=== PATIENT | female | born 2000 | race American Indian/Alaskan Native ===

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

== ENCOUNTER 2021-09-23 09:39 | Emergency (ER) | payer MEDICAID ==
--- NOTE | 2021-09-23 12:41 | Emergency Department Report ---
- General Chief Complaint: Upper Respiratory Infection Stated Complaint: ASIYA/SORE THROAT/PINK EYE Time Seen by Provider: 09/23/21 11:56 Source: patient Mode of arrival: Ambulatory Limitations: No Limitations - History of Present Illness Initial Comments: 21-year-old black female with no past medical history presents to the emergency department for evaluation of few day history of persistent cough, sore throat, headache, redness to right eye, and now pain when she coughs. She denies fever, shortness of breath, nausea, vomiting, abdominal pain, dizziness, and diaphoresis. She states that she has been taking Mucinex and Tylenol at home without improvement. MD Complaint: cough, sore throat, rhinorrhea, nasal congestion -: Gradual, days(s) (2-3) Severity: moderate Severity scale (0 -10): 4 Quality: aching Consistency: constant Associated Symptoms: headache, rhinorrhea, cough, chest pain. denies: fever, chills, myalgias, diaphoresis, stiff neck, shortness of breath, abdominal pain, nausea, vomiting, rash, confusion, weight loss, epistaxis, hoarseness, ear pain Treatments Prior to Arrival: Acetaminophen, other - Related Data Previous Rx's Medication Instructions Recorded Last Taken Type Brompheniramine/Pseudoephed/Dm 10 ml PO TID PRN #120 ml 09/23/21 Unknown Rx [Bromfed Dm Cough Syrup] Olopatadine HCl [Pataday 0.2%] 1 drop OD QDAY 7 Days #1 bottle 09/23/21 Unknown Rx methylPREDNISolone [Medrol 4MG 4 mg PO DAILY #1 pack 09/23/21 Unknown Rx DOSEPAK (21 tabs)] Allergies Allergy/AdvReac Type Severity Reaction Status Date / Time No Known Allergies Allergy Verified 09/23/21 10:06 ED Review of Systems ROS: Stated complaint: ASIYA/SORE THROAT/PINK EYE Other details as noted in HPI Comment: All other systems reviewed and negative Constitutional: denies: chills, fever Eyes: eye discharge (Clear from right). denies: eye pain ENT: throat pain, congestion. denies: ear pain, dental pain, hearing loss Respiratory: cough. denies: shortness of breath, SOB with exertion, SOB at rest, wheezing Cardiovascular: chest pain (Only when she coughs). denies: palpitations, dyspnea on exertion Gastrointestinal: denies: abdominal pain, nausea, vomiting, diarrhea, hematemesis, melena, hematochezia Genitourinary: denies: urgency, dysuria, frequency, hematuria, discharge Musculoskeletal: denies: back pain Skin: denies: rash, lesions Neurological: headache. denies: weakness, numbness, paresthesias ED Past Medical Hx - Past Medical History Previous Medical History?: No - Surgical History Past Surgical History?: No - Social History Smoking Status: Never Smoker Substance Use Type: Alcohol, Marijuana - Medications Home Medications: Home Medications Medication Instructions Recorded Confirmed Last Taken Type Brompheniramine/Pseudoephed/Dm 10 ml PO TID PRN #120 ml 09/23/21 Unknown Rx [Bromfed Dm Cough Syrup] Olopatadine HCl [Pataday 0.2%] 1 drop OD QDAY 7 Days #1 bottle 09/23/21 Unknown Rx methylPREDNISolone [Medrol 4MG 4 mg PO DAILY #1 pack 09/23/21 Unknown Rx DOSEPAK (21 tabs)] ED Physical Exam - General Limitations: No Limitations General appearance: alert, in no apparent distress - Head Head exam: Present: atraumatic, normocephalic - Eye Eye exam: Present: normal appearance, conjunctival injection (Right eye on). Absent: nystagmus, periorbital swelling, periorbital tenderness Pupils: Present: normal accommodation - ENT ENT exam: Present: mucous membranes moist. Absent: normal exam (Bilateral nasal mucosal edema with tenderness to frontal sinus area), normal orophraynx (Erythema noted to posterior oropharynx) - Neck Neck exam: Present: normal inspection. Absent: lymphadenopathy - Respiratory Respiratory exam: Present: normal lung sounds bilaterally, chest wall tenderness. Absent: respiratory distress, wheezes, rales, rhonchi, stridor, accessory muscle use - Cardiovascular Cardiovascular Exam: Present: regular rate, normal heart sounds - GI/Abdominal GI/Abdominal exam: Present: soft, normal bowel sounds. Absent: distended, tenderness, guarding, rebound, rigid - Extremities Exam Extremities exam: Present: normal inspection, normal capillary refill. Absent: pedal edema, joint swelling, calf tenderness - Back Exam Back exam: Present: normal inspection. Absent: CVA tenderness (R), CVA tenderness (L) - Neurological Exam Neurological exam: Present: alert, oriented X3, normal gait - Psychiatric Psychiatric exam: Present: normal affect, normal mood - Skin Skin exam: Present: warm, dry, intact, normal color ED Course Vital Signs 09/23/21 09/23/21 10:05 14:22 Temperature 97.6 F Pulse Rate 86 102 H Respiratory 18 22 Rate Blood Pressure 147/86 Blood Pressure 151/99 [Right] O2 Sat by Pulse 99 99 Oximetry ED Medical Decision Making - Medical Decision Making 21-year-old black female with no past medical history presents to the emergency department for evaluation of few day history of persistent cough, sore throat, headache, redness to right eye, and now pain when she coughs. She denies fever, shortness of breath, nausea, vomiting, abdominal pain, dizziness, and diaphoresis. She states that she has been taking Mucinex and Tylenol at home without improvement. Exam consistent with URI with cough and congestion. Patient nontoxic and [id number], and she is in no acute distress. Patient will be treated with Medrol Dosepak along with Tessalon Perles and Bromfed to use as needed for cough. She is advised to take medications as prescribed, and follow-up with primary care provider if no improvement or worsening symptoms. She verbalized understanding of and agreement with plan of care. Critical care attestation.: If time is entered above; I have spent that time in minutes in the direct care of this critically ill patient, excluding procedure time. ED Disposition Clinical Impression: URI with cough and congestion Allergic conjunctivitis and rhinitis Qualifiers: Laterality: right Qualified Code(s): H10.11 - Acute atopic conjunctivitis, right eye Disposition: HOME / SELF CARE / HOMELESS Is pt being admited?: No Does the pt Need Aspirin: No Condition: Stable Instructions: Cough, Adult, [id number], Allergic Conjunctivitis, Adult, [id number], Upper Respiratory Infection, Adult, [id number], How to Use Eye Drops and Eye Ointments Additional Instructions: Take medications as prescribed. Start taking [id number] allergy medicat ions daily. Drink plenty of noncaffeinated fluids. Follow-up with primary care provider if no improvement or worsening symptoms. Return to the emergency department as needed. Prescriptions: Brompheniramine/Pseudoephed/Dm [Bromfed Dm Cough Syrup] 10 ml PO TID PRN #120 ml PRN Reason: Cough methylPREDNISolone [Medrol 4MG DOSEPAK (21 tabs)] 4 mg PO DAILY #1 pack Olopatadine HCl [Pataday 0.2%] 1 drop OD QDAY 7 Days #1 bottle Referrals: DEEP MADERA MD [Referring] - 3-5 Days Forms: Work/School Release Form(ED) Time of Disposition: 12:42
[2021-09-23 14:24] VITALS: BP 151/99
== END 2021-09-23 13:45 | disposition home or self-care (01) ==
LOC: ED 09:39
DX: J06.9 Acute upper respiratory infection, unspecified (principal); H10.45 Other chronic allergic conjunctivitis; F12.90 Cannabis use, unspecified, uncomplicated; F10.20 Alcohol dependence, uncomplicated
CPT/HCPCS: 99282